=== PATIENT | male | born 1950 ===

== ENCOUNTER 2018-06-20 01:27 | Inpatient (IN) | payer MEDICARE, MEDICAID ==
[~2018-06-20] VITALS: Ht 193 cm; Wt 107.0 kg
[2018-06-20 05:00] VITALS: BP 135/84
[2018-06-20] MEDS: HEPARIN 5,000 UNITS/ML, 1ML SQ SCH ×2 (06:28→13:41)
[2018-06-20] MEDS ORDERED: ONDANSETRON 2MG/ML, 2ML IVPush PRN (06:30)
[2018-06-20] MEDS ORDERED: morphine SULFATE 10 MG/ML, 1ML IVPush PRN (06:30)
[2018-06-20] MEDS ORDERED: ENALAPRILAT 1.25 MG/ML, 2ML IVPush PRN (06:30)
[2018-06-20] MEDS ORDERED: ASPIRIN 325 MG TABLET EC PO SCH (06:30)
[2018-06-20 07:41] VITALS: BP 123/68
[2018-06-20 07:43] LABS: CHOLESTEROL, TOTAL 145 mg/dL (140-239)
[2018-06-20 07:47] LABS: CHOL/HDL RATIO 2.8; HDL CHOL % 35 % (26-37); HDL CHOLESTEROL (DIRECT) 51 mg/dL (40-60); LDL CHOLESTEROL,CALCULATED 85 mg/dL (54-169); LDL/HDL RATIO 1.7 (0.5-3.0); TRIGLYCERIDES 45 mg/dL (50-200); TROPONIN I < 0.015 ng/mL (0.000-0.045); VLDL CHOLESTEROL 9 mg/dL (0-25)
[2018-06-20] MEDS ORDERED: ROSU20TA2 PO (08:11)
[2018-06-20] MEDS ORDERED: CLOP75TA52 PO (08:11)
[2018-06-20] MEDS ORDERED: ASPI-496 PO (08:11)
[2018-06-20] MEDS ORDERED: REGADENOSON 0.4 MG/5 ML SYRINGE ONE (09:47)
[2018-06-20] MEDS ORDERED: DIVA-61 PO (11:58)
[2018-06-20] MEDS ORDERED: ATOR20TA37 PO (11:58)
[2018-06-20] MEDS ORDERED: ATORVASTATIN 20 MG TABLET PO SCH (21:00)
== END 2018-06-20 14:16 | disposition home or self-care (01) | DRG 392 ==
LOC: 5SO 05:02
PROVIDERS: ADMIT Family Medicine; ATTEND Family Medicine
DX: K21.9 Gastro-esophageal reflux disease without esophagitis (principal); Z72.0 Tobacco use; I10 Essential (primary) hypertension; G40.909 Epilepsy, unspecified, not intractable, without status epilepticus; F41.9 Anxiety disorder, unspecified; E78.5 Hyperlipidemia, unspecified; Z86.73 Personal history of transient ischemic attack (TIA), and cerebral infarction without residual deficits; Z90.49 Acquired absence of other specified parts of digestive tract; F17.210 Nicotine dependence, cigarettes, uncomplicated; Z80.8 Family history of malignant neoplasm of other organs or systems; Z82.49 Family history of ischemic heart disease and other diseases of the circulatory system
CPT/HCPCS: 36415; 78452; 80061; 84484; 93017; G0378; J1644; J2785; A9502; C9898